=== PATIENT | female | born 1985 | race Caucasian/White ===

== ENCOUNTER 2021-11-22 15:42 | Outpatient (NON) | payer BC, SELFPAY | END 2021-11-22 15:43 | disposition home or self-care (01) | LOC: CHSLAB 15:43 | PROVIDERS: Visit Provider Family Medicine | DX: R30.0 Dysuria (principal) | CPT/HCPCS: 87086; 87088 ==

== ENCOUNTER 2021-12-04 20:30 | Outpatient (CLI) | payer BC, SELFPAY ==
--- NOTE | 2021-12-09 18:16 | WPDSLEEPSTUD ---
Sleep Study Date of Study: 12/04/21 Ordering Provider: Duke Zaman DO Interpreting Physician: Monique Brewer MD Sleep Study Type: CPAP Titration Height: 1.65 m Weight: 122.708 kg Body Mass Index: 45.0 Neck Circumference (inches): 20 [place]: 16 Reason for Sleep Study Hypersomnolence; documented obstructive sleep apnea. She presents for a split night study. Sleep History Kelli Roger is a 36 year old female with a history of obstructive sleep apnea, previously treated with CPAP. There is a family history of others with CLARENCE, with CPAP used by her brother and mother. She has not used CPAP recently. She has bipolar II disorder. She frequently awakens from sleep feeling short of breath. She occasionally awakens at night with heartburn, belching or coughing. She constantly snores and it is frequently loud enough that others complain about it. She frequently has trouble sleeping with a cold. She rarely wakes up gasping for breath at night. She constantly has breathing problems at night observed by others. She does not sweat excessively at night or notice her heart pounding or beating irregularly at night. She frequently falls asleep during the day, frequently falls asleep involuntarily and occasionally falls asleep while driving. She does not have loss of muscle tone with strong emotion. She frequently has daytime difficulties due to excessive sleepiness. She does not feel paralyzed on waking or falling asleep. She frequently has vivid dreamlike scenes upon awakening or falling asleep. She is not afraid to go to sleep. She constantly has nightmares, constantly remembers her dreams, constantly has racing thoughts, feelings of sadness depression and anxiety. She frequently has muscular tension. She constantly notices parts of her body jerking. She does not kick at night. She occasionally has crawling and aching feelings in her legs. She occasionally has leg pain during the night. She occasionally has morning jaw pain. She rarely grinds her teeth during sleep. She frequently is bothered by pain during the day. She rarely is awakened by pain at night. She frequently wakes up feeling stiff in the morning with sore achy muscles and pain in the neck and spine. She has fatigue, memory problems, concentration difficulties and headaches. She reports a 20 lb weight gain in the last year. Normal bedtime is between midnight and 2:00 a.m., taking 5 minutes to 30 minutes to fall asleep typically waking 4 times during the night to go urinate. She is able to return to sleep at times within 2 minutes however it can take up to an hour for her to return to sleep. She wakes the morning between 7:00 a.m. and 10:00 a.m.. The weekends schedule is different, bedtime is between 1:00 a.m. and 2:00 a.m. with a later wake time between 10:00 a.m. and noon. She takes naps in the afternoon or evening. A short nap is not refreshing. She is drowsy in the morning for 3 hours after waking. Habits: She quit tobacco 20 years ago. Caffeine 1 cup of coffee a day. No alcohol. No recreational drugs. [facility] Past Medical History Medical History (Updated 12/11/21 @ 17:55 by Monique Brewer MD) Bipolar II disorder delivery delivered 2011 GERD (gastroesophageal reflux disease) Headache, migraine Obstructive sleep apnea Surgical History Surgical History (Updated 12/11/21 @ 17:55 by Monique Brewer MD) History of appendectomy History of section Family History Family History Father Diabetes mellitus Mother No problems noted. Father Family history of type 2 diabetes mellitus Social History Social History Tobacco type: cigarettes Additional smoking assessment comments: Quit 2000. Additional living arrangements comments: . 1 Child. Medications Home Medications Medicat
[2021-12-11 17:33] VITALS: BMI 45.0
== END 2021-12-05 06:25 | disposition home or self-care (01) ==
LOC: CHSCSM 20:32
PROVIDERS: PCP Family Medicine; Visit Provider Family Medicine
DX: G47.30 Sleep apnea, unspecified (principal)
CPT/HCPCS: 95811

== ENCOUNTER 2022-02-11 15:34 | Outpatient (NON) | payer BC, SELFPAY | END 2022-02-11 15:35 | disposition home or self-care (01) | LOC: CHSLAB 15:35 | PROVIDERS: Visit Provider Nurse Practitioner Family | DX: N89.9 Noninflammatory disorder of vagina, unspecified (principal); Z12.4 Encounter for screening for malignant neoplasm of cervix; Z13.89 Encounter for screening for other disorder | CPT/HCPCS: 87491; 87591; 87624; 87661; 88175; G0145 ==

== ENCOUNTER 2022-12-15 12:54 | Outpatient (CLI) | payer BC, SELFPAY ==
--- NOTE | 2022-12-18 11:22 | WPDHOLTEREM ---
Holter/Event Monitor Holter/Event Monitor Date of procedure: 12/15/22 Holter/Event Procedure: 48 Hr Holter Monitor Indications: Syncope Conclusion: 1. 48 hour holter monitor on 12/15/22. 2. Underlying rhythm is sinus rhythm. HR range 50-130 bpm; average HR 74 bpm. 3. There are 22 premature supraventricular complexes. No supraventricular tachycardia. 4. There are 104 premature ventricular complexes and 1 ventricular couplet. No ventricular tachycardia. 5. No sinoatrial or atrioventricular blocks. No significant pauses greater than 2 seconds. 6. Patient reports symptoms of being tired and annoyed which demonstrate sinus rhythm, HR range 88-92 bpm.
== END 2022-12-15 12:55 | disposition home or self-care (01) ==
LOC: CHSCARD 12:55
PROVIDERS: PCP Family Medicine; Visit Provider Family Medicine
DX: R55 Syncope and collapse (principal)
CPT/HCPCS: 93225; 93226

== ENCOUNTER 2022-12-26 12:22 | Outpatient (CLI) | payer BC, SELFPAY ==
--- NOTE | 2022-12-26 12:26 | ECHO_ITS ---
Patient Info Name: Kelli Roger Age: 37 years : 1985 Gender: Female Ht: 65 in Wt: 280 lbs BSA: 2.49 m2 HR: 62 bpm BP: 130 / 74 mmHg Technical Quality: Good Exam Date: 12/26/2022 1:22 PM Exam Location: [facility] Patient Status: Outpatient Admit Date: 12/26/2022 Staff Ordering Physician: Duke Zaman DO Senior Occupational Therapist: Damion Nicole RDCS, RT Attending Provider: Duke Zaman DO Referring Physician: Austyn NEAL; Exam Type: CA echo doppler color flow Study Info Indications R06.00 - Dyspnea, unspecified Complete two-dimensional, color flow and Doppler transthoracic echocardiogram is performed. Strain analysis performed. Summary 1. Complete two-dimensional, color flow and Doppler transthoracic echocardiogram is performed. 2. Left ventricular chamber dimension is normal. 3. Left ventricular systolic function is normal, estimated at 60-65%. 4. There is mild concentric increased left ventricular wall thickness. 5. The left ventricular diastolic function is grade III diastolic dysfunction. 6. E/e' 9 is minimally elevated. 7. Global longitudinal strain is normal at -17.9%. Left Ventricle E/e' 9 is minimally elevated. Global longitudinal strain is normal at -17.9%. Left ventricular chamber dimension is normal. Left ventricular systolic function is normal, estimated at 60-65%. There is mild concentric increased left ventricular wall thickness. The left ventricular diastolic function is grade III diastolic dysfunction. Right Ventricle Right ventricular systolic function is normal and with normal TAPSE 2.3 cm. Right ventricular chamber dimension is normal. Left Atria Left atrial chamber dimension is normal. Right Atria Right atrial chamber dimension is normal. Aortic Valve The aortic valve is trileaflet. There is no aortic valve stenosis. There is no aortic valve regurgitation. Pulmonic Valve There is no pulmonic regurgitation. Mitral Valve There is no mitral valve stenosis. There is no mitral valve regurgitation. Tricuspid Valve There is no tricuspid valve regurgitation. Pericardium/Pleural There is no pericardial effusion. Inferior Vena Cava Normal inferior vena cava with >50% collapse upon inspiration consistent with normal right atrial pressure, 5 mmHg. Aorta The aortic root size at the sinus of Valsalva is normal. Left Ventricular Outflow Tract Name Value Normal LVOT 2D LVOT Diameter 2.1 cm LVOT Doppler LVOT Peak Velocity 90 cm/s LVOT Peak Gradient 3 mmHg LVOT Mean Gradient 2 mmHg LVOT VTI 20 cm LVOT VTI/AV VTI Ratio 0.7 LVOT Stroke Volume 68 ml Mitral Valve Name Value Normal MV Doppler MV Decel [place] 4
== END 2022-12-26 12:23 | disposition home or self-care (01) ==
LOC: CHSIMG 12:23
PROVIDERS: PCP Family Medicine; Visit Provider Family Medicine
DX: R55 Syncope and collapse (principal)
CPT/HCPCS: 93306

== ENCOUNTER 2023-07-13 15:01 | Outpatient (CLI) | payer OTHER, SELFPAY ==
[2023-07-13 17:06] LABS: Uric Acid 3.6 mg/dL (2.6-6.0)
== END 2023-07-13 15:02 | disposition home or self-care (01) ==
LOC: CHSLAB 15:04
PROVIDERS: PCP Family Medicine; Visit Provider Family Medicine
DX: M10.9 Gout, unspecified (principal)
CPT/HCPCS: 36415; 84550

== ENCOUNTER 2023-10-14 15:39 | Outpatient (CLI) | payer OTHER, SELFPAY ==
[2023-10-14 16:03] LABS: Basophils Absolute Auto 0.03 K/mm3 (0.00-0.10); Basophils Percent Auto 0.5 % (0.0-1.0); Eosinophils Absolute Auto 0.12 K/mm3 (0.02-0.50); Hematocrit 38.1 % (35.0-49.0); Hemoglobin 12.7 g/dL (12.0-15.0); Immature Granulocyte Absolute 0.02 K/mm3 (0.00-0.00); Immature Granulocyte Percent A 0.3 % (0.0-0.0); Lymphocytes Absolute Auto 1.99 K/mm3 (1.10-4.50); Lymphocytes Percent Auto 33.7 % (18.0-42.0); Mean Corpuscular HGB Conc 33.3 g/dL (32.0-36.0); Mean Corpuscular Hemoglobin 32.2 pg (27.0-31.0); Mean Corpuscular Volume 96.5 fL (78.0-102.0); Mean Platelet Volume 9.6 fl (9.2-11.8); Monocytes Absolute Auto 0.56 K/mm3 (0.10-0.90); Monocytes Percent Auto 9.5 % (2.0-11.0); Neutrophils Absolute Auto 3.2 K/mm3 (1.7-7.2); Platelet Count Result 308 K/mm3 (150-420); Red Blood Count 3.95 M/mm3 (4.20-5.40); Red Cell Distribution Width 11.9 % (11.6-14.4); White Blood Count 5.9 K/mm3 (4.8-10.8)
[2023-10-14 16:33] LABS: Alanine Aminotransferase 51 U/L (14-59); Albumin Level 3.9 g/dL (3.4-5.0); Alkaline Phosphatase 72 U/L (46-116); Anion Gap 7 mmol/L (8-16); Aspartate Amino Transferase 23 U/L (15-37); Bilirubin,Total 0.3 mg/dL (0.00-1.00); Blood Urea Nitrogen 8 mg/dL (7-18); Calcium 8.6 mg/dL (8.5-10.1); Carbon Dioxide 29 mmol/L (21-32); Chloride 100 mmol/L (98-108); Cholesterol 193 mg/dL (0-200); Estimated Glomerular Filt Rate > 60; Glucose 97 mg/dL (70-99); HDL Direct 41 mg/dL (40-60); LDL Cholesterol Calculated 111 mg/dL (<130); Osmolality Calculated 280 mOsm/kg (285-295); Potassium 4.3 mmol/L (3.5-5.1); Sodium 136 mmol/L (136-145); Total Protein 7.3 g/dL (6.4-8.2); Triglycerides 207 mg/dL (0-150)
[2023-10-14 16:35] LABS: Thyroid Stimulating Hormone Reflex 1.24 u/IU/mL (0.36-3.74)
== END 2023-10-14 15:40 | disposition home or self-care (01) ==
LOC: CHSLAB 15:41
PROVIDERS: PCP Nurse Practitioner Family; Visit Provider Nurse Practitioner Family
DX: Z00.00 Encounter for general adult medical examination without abnormal findings (principal)
CPT/HCPCS: 36415; 80053; 80061; 83036; 84443; 85025

== ENCOUNTER 2023-12-29 12:58 | Outpatient (CLI) | payer OTHER, SELFPAY ==
--- NOTE | ~2023-12-29 | XR_ITS ---
EXAMINATION: XR chest 2V Exam Date/Time: 12/29/2023 12:40 PARIMUTUEL CASHIER HISTORY: Z01.818 - Encounter for other preprocedural examination Comparison: None. RESULT: Lines, tubes, and devices: None. Lungs and pleura: Clear. Cardiomediastinal silhouette: Stable. Other: No acute osseous or upper abdominal finding. IMPRESSION: No acute cardiopulmonary process. Reviewed, dictated and finalized at location K. MUTUEL CASHIER
--- NOTE | ~2023-12-29 | MM_ITS ---
EXAMINATION: MM screening taran BI w katerina HISTORY: Screening mammogram TECHNIQUE: Craniocaudal and mediolateral oblique 3-D tomosynthesis images were obtained and synthetic 2-D images were generated. CAD analysis was submitted and interpreted. COMPARISON: No prior mammogram is available for comparison at this institution. BREAST PARENCHYMAL COMPOSITION: The breasts are almost entirely fatty. FINDINGS: There is no evidence of suspicious mass, calcification, or architectural distortion to sugg est malignancy in either breast. There has been no suspicious interval change. IMPRESSION: 1. No mammographic evidence of malignancy. 2. Recommend routine screening mammography in one year. BI-RADS Category 1: Negative Reviewed, dictated and finalized at location A. [employer] [employer]
--- NOTE | 2023-12-29 13:19 | ECG_ITS ---
Measurements Intervals [place] Rate: 84 P: 58 HI: 136 QRS: 19 QRSD: 87 T: 51 QT: 354 QTc: 419 Interpretive Statements SINUS RHYTHM BASELINE WANDER- I, II, III, V1 NORMAL ECG NO PREVIOUS ECG AVAILABLE FOR COMPARISON Electronically Signed On 12-29-2023 14:18:59 [employer] by Adrian Mcdaniel D.O.
[2023-12-29 13:21] LABS: Basophils Absolute Auto 0.04 K/mm3 (0.00-0.10); Basophils Percent Auto 0.5 % (0.0-1.0); Eosinophils Absolute Auto 0.07 K/mm3 (0.02-0.50); Eosinophils Percent Auto 0.9 % (1.0-6.0); Hematocrit 39.8 % (35.0-49.0); Hemoglobin 13.3 g/dL (12.0-15.0); Immature Granulocyte Absolute 0.02 K/mm3 (0.00-0.00); Immature Granulocyte Percent A 0.3 % (0.0-0.0); Lymphocytes Absolute Auto 2.05 K/mm3 (1.10-4.50); Lymphocytes Percent Auto 27.5 % (18.0-42.0); Mean Corpuscular HGB Conc 33.4 g/dL (32.0-36.0); Mean Corpuscular Hemoglobin 31.4 pg (27.0-31.0); Mean Corpuscular Volume 94.1 fL (78.0-102.0); Mean Platelet Volume 9.1 fl (9.2-11.8); Monocytes Absolute Auto 0.59 K/mm3 (0.10-0.90); Monocytes Percent Auto 7.9 % (2.0-11.0); Neutrophils Absolute Auto 4.7 K/mm3 (1.7-7.2); Neutrophils Percent Auto 62.9 % (50.0-70.0); Platelet Count Result 355 K/mm3 (150-420); Red Blood Count 4.23 M/mm3 (4.20-5.40); Red Cell Distribution Width 11.9 % (11.6-14.4); White Blood Count 7.5 K/mm3 (4.8-10.8)
[2023-12-29 13:22] LABS: Appearance Urine Clear (Clear); Bilirubin Urine Negative (Negative); Blood Urine 1+ (Negative); Color Urine Light Yellow (Yellow); Glucose Urine UA 3+ (Negative); Ketones Urine Negative (Negative); Leukocyte Esterase Ur Negative LEU/UL (Negative); Nitrate Urine Negative (Negative); Protein Urine Negative (Negative); Urobilinogen Urine 0.2 mg/dL (0.2-1.0)
[2023-12-29 13:26] LABS: Add Urine Microscopic? YES; Bacteria Urine Trace /hpf; Squamous Epithelial Cell Urine Few /hpf (Few); WBC Urine None seen /hpf (0-3)
[2023-12-29 14:01] LABS: Alanine Aminotransferase 33 U/L (14-59); Alkaline Phosphatase 80 U/L (46-116); Anion Gap 11 mmol/L (8-16); Aspartate Amino Transferase 17 U/L (15-37); Bilirubin,Total 0.2 mg/dL (0.00-1.00); Blood Urea Nitrogen 13 mg/dL (7-18); Calcium 9.3 mg/dL (8.5-10.1); Carbon Dioxide 27 mmol/L (21-32); Chloride 100 mmol/L (98-108); Estimated Glomerular Filt Rate > 60; Glucose 88 mg/dL (70-99); Osmolality Calculated 285 mOsm/kg (285-295); Potassium 4.8 mmol/L (3.5-5.1); Sodium 138 mmol/L (136-145); Total Protein 7.6 g/dL (6.4-8.2)
[2024-01-01 13:14] LABS: Vitamin D 25 Hydroxy 37 ng/mL (30-100)
== END 2023-12-29 12:59 | disposition home or self-care (01) ==
LOC: CHSIMG 13:01
PROVIDERS: Nurse Practitioner Family; PCP Nurse Practitioner Family; Visit Provider Nurse Practitioner Family
DX: Z01.818 Encounter for other preprocedural examination (principal); Z79.899 Other long term (current) drug therapy; Z12.31 Encounter for screening mammogram for malignant neoplasm of breast
CPT/HCPCS: 36415; 71046; 77063; 77067; 80053; 81001; 82306; 85025; 93005

== ENCOUNTER 2024-06-23 13:39 | Outpatient (CLI) | payer OTHER, SELFPAY ==
[2024-06-23 14:20] VITALS: BP 119/69; PULSE 60; RESP 16; TEMP 35.8; O2SAT 98; BMI 36.9
[2024-06-23] MEDS: SODIUM CHLORIDE 0.9% IV 1,000 ML 999 ML IVPB (14:30)
--- NOTE | 2024-06-23 15:25 | PC.NURSE ---
Patient tolerated IV fluids well, IV site discontinued, dressing applied to site. Patient denies any questions at discharge. Left floor ambulatory with .
== END 2024-06-23 13:40 | disposition home or self-care (01) ==
LOC: CHSTREATRM 13:48
PROVIDERS: PCP Nurse Practitioner Family; Visit Provider Family Medicine
DX: E86.0 Dehydration (principal)
CPT/HCPCS: 96360